=== PATIENT | female | born 1955 | race Caucasian/White ===

== ENCOUNTER 2017-10-27 07:52 | Emergency (ER) | payer OTHER, SELFPAY ==
[2017-10-27 08:00] VITALS: BP 148/89; PULSE 112; RESP 20; TEMP 36.7; O2SAT 99
--- NOTE | 2017-10-27 08:01 | ED.LOWEXIN ---
HPI - Extremity Injury (Lower) General Chief Complaint: Extremity Problem,Nontraumatic Stated Complaint: PAIN IN LEFT LEG Time Seen by Provider: 10/27/17 07:57 Source: patient Mode of arrival: ambulatory Limitations: no limitations History of Present Illness HPI Narrative: Patient is otherwise healthy 62-year-old female here for evaluation of approximately 1 month of left lower extremity soreness. She denies any specific trauma. She states that it has been hurting over the past month but worsening over the past week or so. It has gotten to the point to where her limping has become worse. Has been taking occasional anti-inflammatories but not on a regular basis. No prior knee injuries. Describes the pain as a vague soreness in her left calf muscle and specifically behind her left knee. No swelling of the lower extremity. No skin changes. Related Data Home Medications Medication Instructions Recorded Confirmed ibuprofen 200 mg PO #0 tab 11/27/15 10/25/17 Previous Rx's Medication Instructions Recorded venlafaxine 1 tab PO QDAY #90 tab 05/02/17 clotrimazole-betamethasone 1 1 applictn TOP BID #15 gram 10/25/17 %-0.05 % topical cream methocarbamol 500 mg tablet 1,000 mg PO QID #30 tab MDD 8000 10/25/17 mg/day omeprazole magnesium 20 mg 20 mg PO DAILY #30 tab 10/25/17 tablet,delayed release meloxicam [Mobic] 7.5 mg PO DAILY #30 tab 10/27/17 Allergies Allergy/AdvReac Type Severity Reaction Status Date / Time PET DANDER Allergy Unknown Uncoded 07/26/17 12:37 Review of Systems Constitutional Denies chills and Denies fever(s) Cardiovascular Denies chest pain and Denies dyspnea Respiratory Denies dyspnea Gastrointestinal Gastrointestinal: Denies abdominal pain Musculoskeletal Comments: Soreness to the left lower extremity Integumentary/Breasts Denies lesions and Denies rash Neurologic Comments: No changes in sensation left lower extremity Hematologic/Lymphatic Denies easy bleeding and Denies easy bruising PFSH Family History Brother Age: 60 Hypertension High cholesterol Brother Age: 58 Hypertension High cholesterol Father Cancer Grandfather Stroke Grandmother Diabetes mellitus TB (tuberculosis) Grandmother Stroke Social History Smoking Status: Never smoker alcohol intake: never Exam Initial Vital Signs Initial Vital Signs: Vital Signs Temperature 98.0 F 10/27/17 08:00 Pulse Rate 112 H 10/27/17 08:00 Respiratory Rate 20 10/27/17 08:00 Blood Pressure 148/89 H 10/27/17 08:00 Pulse Oximetry 99 10/27/17 08:00 Const General: cooperative, healthy appearing, comfortable, well developed, well groomed and No acute distress Orientation: alert, awake and oriented x3 HENMT Head: normal to inspection, normocephalic and atraumatic Resp Effort & Inspection: normal respiratory effort Cardio Pulses: dorsalis pedis present on the left Skin Lesions: no lesions Rashes: no rashes Neuro Other: Sensation intact to light touch left lower extremity Extrem General: normal to inspection and capillary refill normal Other: Left hip unremarkable Left ankle unremarkable Left foot unremarkable Patient with full range of motion of the left knee however asked to work to fully extend the knee. No tenderness to palpation over the quadriceps tendons. Patient able to do a straight leg raise without problems. No medial lateral joint line tenderness. ACL MCL PCL and LCL are all intact with functional testing. Patient does have a fullness to the lateral aspect of the posterior of her knee that seems to be the focal point of her pain. Psych Appearance: grossly normal and well kempt Course Orders Ordered: ED Orders 10/27/17 08:17 US periph venous low extrem lt Stat Vital Signs - 8 hr 10/27/17 08:00 Temperature 98.0 F Pulse Rate 112 H Respiratory Rate 20 Blood Pressure 148/89 H Pulse Oximetry 99 MDM - Extremity Injury (Lower) Imaging Data Venous US: Radiologist's impression: PROCEDURE: US PERIPH VENOUS LOW EXTREM LT INDICATIONS: PAIN TECHNIQUE: Real-time imaging, as well as color and pulse Doppler interrogation, were performed of the lower extremity deep veins from the inguinal ligament to the popliteal fossa. COMPARISON: None. FINDINGS: The deep veins are normally compressible, and free of intraluminal thrombus. Color and pulse Doppler demonstrate normal phasic intraluminal flow. There is normal augmentation response to distal compression maneuver. IMPRESSION: 1. No evidence of deep venous thrombosis in the left lower extremity. Dictated by: Alvarez Abdi M.D. on 10/27/2017 at 8:54 Approved by: Alvarez Abdi M.D. on 10/27/2017 at 8:55 [facility] Narrative Medical decision making narrative: Patient has had pain for 1 month. I have low suspicion for a fracture. Will hold on x-rays for now. Ultrasound was negative for DVT. broadband technician stated that there was no Mendez cyst however there is no mention of this on the ultrasound report. 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 She has no skin changes consistent with cellulitis. Physical exam is not consistent with compartment syndrome. Her history is not consistent with a major ligament disruption. She has no edema in her left lower extremity. Physical exam is not consistent with gout. Patient has only been taking occasional nonsteroidal anti-inflammatories. We discussed easy treatments such as elevation ice and anti-inflammatories. She was given crutches for her comfort. Patient states that she can get an appointment with her primary doctor in the next 2 weeks. Will send home with Zaira. She was instructed to make this appointment with her primary doctor and if her symptoms do not improve with the treatments that we discussed today to discuss the indications for an MRI with her primary doctor. She was given return precautions. She expressed understanding and agreement with plan. Discharge Plan Departure Patient Disposition: Home, Self-Care Clinical Impression: Leg pain, left Instructions: How to Use Crutches, How To Perform RICE (Rest, Ice, Compress, Elevate) Activity Restrictions/Additional Instructions: Recommend that you make the follow-up appointment with your primary care doctor for 2 weeks from now. Do the easy task likely discussed such as elevation and icing and compression in using the crutches as needed for your comfort. You can walk on your leg. Take the medication like we discussed. Return to the emergency department for any new or worsening symptoms. Prescriptions: New meloxicam [Mobic] 7.5 mg tablet 7.5 mg PO DAILY Qty: 30 RF: 0 No Action methocarbamol 500 mg tablet 1,000 mg PO QID MDD 8000 mg/day Qty: 30 RF: 0 clotrimazole-betamethasone [Lotrisone] 1-0.05 % cream 1 applictn TOP BID Qty: 15 RF: 2 omeprazole magnesium [Prilosec OTC] 20 mg tablet,delayed release (DR/EC) 20 mg PO DAILY Qty: 30 RF: 0 ibuprofen 200 MG tablet 200 mg PO Qty: 0 RF: 0 venlafaxine 75 MG tablet extended release 24hr 1 tab PO QDAY Qty: 90 RF: 3
--- NOTE | 2017-10-27 08:17 | DI.US.S_ITS ---
PROCEDURE: US PERIPH VENOUS LOW EXTREM LT INDICATIONS: PAIN TECHNIQUE: Real-time imaging, as well as color and pulse Doppler interrogation, were performed of the lower extremity deep veins from the inguinal ligament to the popliteal fossa. COMPARISON: None. FINDINGS: The deep veins are normally compressible, and free of intraluminal thrombus. Color and pulse Doppler demonstrate normal phasic intraluminal flow. There is normal augmentation response to distal compression maneuver. IMPRESSION: 1. No evidence of deep venous thrombosis in the left lower extremity. Dictated by: Alvarez Abdi M.D. on 10/27/2017 at 8:54 Approved by: Alvarez Abdi M.D. on 10/27/2017 at 8:55
[2017-10-27 09:40] VITALS: BP 136/90; PULSE 83; RESP 20; O2SAT 98
== END 2017-10-27 09:42 | disposition home or self-care (01) ==
PROVIDERS: Emergency Provider Emergency Medicine; PCP Family Medicine
DX: M79.605 Pain in left leg (principal)
CPT/HCPCS: 93971; 99282; 99284

== ENCOUNTER 2017-11-06 10:26 | Emergency (ER) | payer OTHER, SELFPAY ==
[2017-11-06 10:34] VITALS: BP 140/87; PULSE 98; RESP 18; TEMP 36.4; O2SAT 97; BMI 29.7
[2017-11-06 10:44] VITALS: PULSE 98
--- NOTE | 2017-11-06 11:34 | DI.RAD.S_ITS ---
PROCEDURE: XR TIBIA FIBULA RT 2V INDICATIONS: pain TECHNIQUE: 2 views of the tibia and fibula were acquired. COMPARISON: None. FINDINGS: Bones: No fractures or dislocations. No suspicious bony lesions. Soft tissues: No suspicious soft tissue calcifications or masses. IMPRESSION: No fracture. No osseous lesion. If symptoms and/or clinical suspicion for pathology persists, further assessment with repeat radiographs (7-10 days) or advanced imaging (e.g. CT, MRI or bone scan) may be helpful. Dictated by: Svetlana Jaffe MD, PhD on 11/06/2017 at 12:11 Approved by: Svetlana Jaffe MD, PhD on 11/06/2017 at 12:12
--- NOTE | 2017-11-06 11:34 | DI.RAD.S_ITS ---
PROCEDURE: XR KNEE LT 3V INDICATIONS: pain TECHNIQUE: 3 views of the knee were acquired. COMPARISON: None. FINDINGS: Bones: No fractures or dislocations. No suspicious bony lesions. Mild tricompartmental osteoarthritis. Soft tissues: No joint effusion. No suspicious soft tissue calcifications. IMPRESSION: No fracture. No osseous lesion. If symptoms and/or clinical suspicion for pathology persists, further assessment with repeat radiographs (7-10 days) or advanced imaging (e.g. CT, MRI or bone scan) may be helpful. Dictated by: Svetlana Jaffe MD, PhD on 11/06/2017 at 12:12 Approved by: Svetlana Jaffe MD, PhD on 11/06/2017 at 12:13
--- NOTE | 2017-11-06 12:29 | DI.RAD.S_ITS ---
PROCEDURE: XR HIP W PEL IF DONE LT 2V INDICATIONS: L knee pain w/ normal exam and imaging - referred pain? TECHNIQUE: AP pelvis with lateral view(s) of the left hip(s). COMPARISON: None. FINDINGS: Bones: No fractures or dislocations. Pelvic ring appears intact. No suspicious bony lesions. Soft tissues: The visualized bowel gas pattern is normal. No suspicious soft tissue calcifications. IMPRESSION: Normal pelvis and left hip Dictated by: Carrington Martines M.D. on 11/06/2017 at 12:44 Approved by: Carrington Martines M.D. on 11/06/2017 at 12:46
[2017-11-06 12:45] VITALS: BP 137/75; PULSE 82; RESP 82; O2SAT 97
--- NOTE | 2017-11-06 13:04 | ED_ITS ---
HPI - Extremity Injury (Lower) General Chief Complaint: Extremity Injury, Lower Stated Complaint: Left knee pain, non-weight bearing History of Present Illness HPI Narrative: HPI 62-year-old female with no known pertinent past medical history presents for evaluation of 5 weeks of gradual, atraumatic onset left knee/proximal calf discomfort that is interfering with ambulation. Patient reports a prior evaluation approximately one week ago with negative DVT ultrasound and absence of a Mendez's cyst on ultrasound. Patient denies change in symptoms over the last 5 weeks. Patient is requesting an MRI as she is having difficulty obtaining this through her PCP. Patient is without fevers, chills, or malaise. ROS with no recent constitutional symptoms. Exam Gen: Pleasant, nontoxic-appearing, resting comfortably. HEENT: NC, AT, PEERL, EOMI. Resp: Unlabored respirations with a normal work of breathing. Card: Extremities warm and well perfused. GI: Non-distended. : Deferred MSK: Left knee with full functional range of motion, no tenderness to palpation over the patella, fibular head, or joint line. No MCL or LCL tenderness to palpation, negative Zeny and posterior drawer test. No tenderness to palpation on the quadriceps or patellar tendon, both tendons intact on knee extension. No swelling, ecchymosis or effusion. Calf without visible or palpable trauma, muscle compartments soft and non-tender to palpation. Mild tenderness to palpation over the proximal calf. No tenderness palpation over the tibia or fibula. Gait - patient minimally able to bear weight on left leg, pain is localized to the distal posterior knee/proximal calf. Neuro: AO x 3, no facial asymmetry, vision and hearing WNL. Heme/Lymph: Deferred Skin: Normal color with no visible lesions (other than noted above). Psych: Mood and affect appropriate. Imaging: XR L knee: no fracture. No osseous lesions. XR L tib-fib: no fracture. No osseous lesion. XR L Hip and Pelvis: normal pelvis and left hip. MDM Previous chart, nursing note, and vitals reviewed. A: 62-year-old female with no known pertinent past medical history presents for evaluation of 5 weeks of gradual, atraumatic onset left knee/proximal calf discomfort that is interfering with ambulation. DDx & Evaluation: patient with left knee/proximal calf pain with otherwise unremarkable exam, this effectively excludes septic or crystalline arthropathy. CMS intact. No evidence of ligamentous or tendinous injury, no clear evidence of meniscal injury. No evidence of compartment syndrome, myositis considered but given the focal nature of pain as well as duration of symptoms this is considered highly unlikely. Prior DVT exam unremarkable, no indications for repeat imaging. X-rays of the knee and tibia or fibula were unremarkable, no evidence of acute fracture or pathologic lesions. Referred pain was considered, hip imaging was obtained this is without evidence of abnormality. Patient discharged with instructions to follow up with PCP for further evaluation. Impression: left knee/proximal calf pain. (please reference below for remainder of encounter information) Related Data Home Medications Medication Instructions Recorded Confirmed ibuprofen 200 mg PO PRN PRN #0 tab 11/27/15 11/06/17 Previous Rx's Medication Instructions Recorded venlafaxine 1 tab PO QDAY #90 tab 05/02/17 clotrimazole-betamethasone 1 1 applictn TOP BID #15 gram 10/25/17 %-0.05 % topical cream omeprazole magnesium 20 mg 20 mg PO DAILY #30 tab 10/25/17 tablet,delayed release meloxicam [Mobic] 7.5 mg PO DAILY #30 tab 10/27/17 cyclobenzaprine 5 mg tablet 5 mg PO BEDTIME #30 tab 11/02/17 Allergies Allergy/AdvReac Type Severity Reaction Status Date / Time PET DANDER Allergy Unknown Uncoded 07/26/17 12:37 [facility] Social History Smoking Status: Never smoker alcohol intake: never Exam Initial Vital Signs Initial Vital Signs: Vital Signs Temperature 97.6 F 11/06/17 10:34 Pulse Rate 98 H 11/06/17 10:34 Respiratory Rate 18 11/06/17 10:34 Blood Pressure 140/87 H 11/06/17 10:34 Pulse Oximetry 97 11/06/17 10:34 Course Orders Ordered: ED Orders 11/06/17 11:34 XR knee LT 3V Stat XR tibia fibula LT 2V Stat 11/06/17 12:29 XR hip w pel if done LT 2V Stat Vital Signs - 8 hr 11/06/17 10:34 11/06/17 10:44 11/06/17 12:45 Temperature 97.6 F Pulse Rate 98 H 82 Pulse Rate [Left Dorsalis Pedis] 98 H Respiratory Rate 18 82 H Blood Pressure 140/87 H Blood Pressure [Left Arm] 137/75 H Pulse Oximetry 97 97 Discharge Plan Departure Prescriptions: No Action clotrimazole-betamethasone [Lotrisone] 1-0.05 % cream 1 applictn TOP BID Qty: 15 RF: 2 omeprazole magnesium [Prilosec OTC] 20 mg tablet,delayed release (DR/EC) 20 mg PO DAILY Qty: 30 RF: 0 ibuprofen 200 MG tablet 200 mg PO PRN PRN (Reason: Pain, Mild) Qty: 0 RF: 0 venlafaxine 75 MG tablet extended release 24hr 1 tab PO QDAY Qty: 90 RF: 3 cyclobenzaprine 5 mg tablet 5 mg PO BEDTIME Qty: 30 RF: 0 meloxicam [Mobic] 7.5 mg tablet 7.5 mg PO DAILY Qty: 30 RF: 0
== END 2017-11-06 13:35 | disposition home or self-care (01) ==
PROVIDERS: Emergency Provider Emergency Medicine; PCP Family Medicine
DX: M25.562 Pain in left knee (principal)
CPT/HCPCS: 73502; 73562; 73590; 99281; 99283

== ENCOUNTER → 2018-07-28 11:22 | Outpatient (CLI) | payer OTHER, SELFPAY ==
--- NOTE | 2018-07-28 11:24 | DI.MG.S_ITS ---
BILATERAL DIGITAL SCREENING MAMMOGRAM 3D/2D WITH CAD: 07/28/2018 CLINICAL: Routine screening. Family history of breast cancer. Comparison is made to exams dated: 10/12/2016 mammogram - [facility], 10/15/2008 mammogram, and 03/05/2008 mammogram - [facility]. The tissue of both breasts is extremely dense, which lowers the sensitivity of mammography. Current study was also evaluated with a Computer Aided Detection (CAD) system. There are benign post operative findings in both breasts. There also are benign calcifications in both breasts. Additionally, there is a benign biopsy clip in the left breast. No significant masses, calcifications, or other findings are seen in either breast. There has been no significant interval change. IMPRESSION: There is no mammographic evidence of malignancy. A 1 year screening mammogram is recommended. This exam was interpreted at Station ID: [id number]. NOTE: For mammograms, a report in lay terms will be sent to the patient. Approximately 15% of breast malignancies will not be visualized mammographically. In the management of a palpable breast mass, a negative mammogram must not discourage biopsy of a clinically suspicious lesion. Electronically Signed By: Giuseppe moseley/leonardo:07/30/2018 09:00:51 letter sent: Normal Exam ACR BI-RADS Category 2: Benign Finding(s) 3342F
== END ==
PROVIDERS: PCP Family Medicine; Visit Provider Family Medicine
DX: Z12.31 Encounter for screening mammogram for malignant neoplasm of breast (principal); Z80.3 Family history of malignant neoplasm of breast
CPT/HCPCS: 77063; 77067

== ENCOUNTER → 2020-03-20 11:09 | Outpatient (CLI) | payer MEDICARE, OTHER, SELFPAY ==
[2020-03-20 12:58] LABS: Add Manual Diff / Slide Review NO; Basophils Absolute Auto 0 /uL (0-100); Basophils Percent Auto 0.6 % (0-2); Eosinophils Absolute Auto 200 /uL (0-450); Eosinophils Percent Auto 5.2 % (2-4); Hematocrit 40.1 % (36-46); Hemoglobin 13.1 g/dL (12.0-16.0); Lymphocytes Absolute Auto 1000 /uL (1100-4500); Lymphocytes Percent Auto 22.5 % (25-40); Mean Corpuscular HGB Conc 32.8 % (30-36); Mean Corpuscular Hemoglobin 28.7 PG (26-34); Mean Corpuscular Volume 87.5 fL (80-100); Monocytes Absolute Auto 400 /uL (0-900); Monocytes Percent Auto 9.5 % (3-14); Neutrophils Absolute Auto 2700 /uL (1500-7000); Neutrophils Percent Auto 62.2 % (50-75); Platelet Count 207 X10^3/uL (150-400); Red Blood Cell Count 4.59 X10^6/uL (4.0-5.2); Red Cell Distribution Width 13.9 % (11.6-14.8); White Blood Cell Count 4.4 X10^3/uL (4.5-11.0)
[2020-03-20 13:54] LABS: Alanine Aminotransferase 17 IU/L (<35); Albumin 4.1 g/dL (3.5-5.0); Albumin Globulin Ratio 1.3 (1.0-2.8); Alkaline Phosphatase 92 U/L (38-126); Aspartate Aminotransferase 30 IU/L (14-36); BUN Creatinine Ratio 19.8 (6-22); Bilirubin Total 0.7 mg/dL (0.2-1.3); Blood Urea Nitrogen 17 mg/dL (7-17); Calcium 9.1 mg/dL (8.4-10.2); Carbon Dioxide 29 mmol/L (22-32); Chloride 104 mmol/L (98-107); Cholesterol 217 mg/dL (140-199); Estimated Glomerular Filt Rate > 60.0 mL/min (>60); Globulin 3.1 g/dL (1.7-4.1); Glucose 93 mg/dL (80-110); HDL Cholesterol 65 mg/dL (40-60); HEMOLYSIS < 15 (0-50); LDL Cholesterol Calculated 136 mg/dL (<100); Potassium 4.2 mmol/L (3.4-5.1); Sodium 137 mmol/L (137-145); Total Protein 7.2 g/dL (6.3-8.2); Triglycerides 81 mg/dL (35-150)
[2020-03-20 14:35] LABS: Vitamin B12 277 pg/mL (239-931)
== END ==
PROVIDERS: PCP Family Medicine; Referring Provider Family Medicine; Visit Provider Family Medicine
DX: F41.8 Other specified anxiety disorders (principal); R53.83 Other fatigue; Z79.899 Other long term (current) drug therapy; Z13.0 Encounter for screening for diseases of the blood and blood-forming organs and certain disorders involving the immune mechanism; Z13.1 Encounter for screening for diabetes mellitus; Z13.220 Encounter for screening for lipoid disorders; Z13.29 Encounter for screening for other suspected endocrine disorder
CPT/HCPCS: 36415; 80053; 80061; 82607; 85025

== ENCOUNTER → 2020-04-11 08:58 | Outpatient (CLI) | payer MEDICARE, OTHER, SELFPAY ==
--- NOTE | 2020-04-11 09:01 | DI.MG.S_ITS ---
BILATERAL DIGITAL SCREENING MAMMOGRAM 3D/2D WITH CAD: 04/11/2020 CLINICAL: Routine screening. Family history of breast cancer. Comparison is made to exams dated: 07/28/2018 mammogram and 10/12/2016 mammogram - [facility]. The tissue of both breasts is extremely dense, which lowers the sensitivity of mammography. Current study was also evaluated with a Computer Aided Detection (CAD) system. There are benign calcifications in both breasts. There also are benign post operative findings in the right breast. Additionally, there are benign post operative findings and biopsy clip in the left breast. No significant masses, calcifications, or other findings are seen in either breast. There has been no significant interval change. IMPRESSION: BENIGN There is no mammographic evidence of malignancy. A 1 year screening mammogram is recommended. This exam was interpreted at Station ID: [id number]. NOTE: For mammograms, a report in lay terms will be sent to the patient. Approximately 15% of breast malignancies will not be visualized mammographically. In the management of a palpable breast mass, a negative mammogram must not discourage biopsy of a clinically suspicious lesion. Electronically Signed By: Baldemar del valle/leonardo:04/13/2020 10:37:08 letter sent: Normal Exam ACR BI-RADS Category 2: Benign Finding(s) 3342F
== END ==
PROVIDERS: PCP Family Medicine; Referring Provider Family Medicine; Visit Provider Family Medicine
DX: Z12.31 Encounter for screening mammogram for malignant neoplasm of breast (principal); Z80.3 Family history of malignant neoplasm of breast
CPT/HCPCS: 77063; 77067

== ENCOUNTER 2020-04-27 12:53 | Observation (INO) | payer MEDICARE, SELFPAY ==
[2020-04-27] VITALS (10 sets, daily range): BP systolic 125–152; BP diastolic 68–87; PULSE 70–82; RESP 16–23; TEMP 36.4–36.7; O2SAT 95–99; BMI 29.7
--- NOTE | 2020-04-27 13:02 | DI.RAD.S_ITS ---
PROCEDURE: XR CHEST 1V INDICATIONS: chest pain TECHNIQUE: One view of the chest was acquired. COMPARISON: None. FINDINGS: Surgical changes and devices: None. Lungs and pleura: Lungs are clear. No pleural effusions or pneumothorax. Mediastinum: Mediastinal contours appear normal. Heart size is normal. Bones and chest wall: No suspicious bony lesions. Overlying soft tissues appear unremarkable. IMPRESSION: Normal portable chest for age. Dictated by: Roly Vitale M.D. on 04/27/2020 at 12:23 Approved by: Roly Vitale M.D. on 04/27/2020 at 12:24
--- NOTE | 2020-04-27 13:12 | ED.CHESTPAIN ---
HPI - Chest Pain General Chief Complaint: Chest Pain Stated Complaint: Tightening/Pain in Chest, Sweating, Light Headed Time Seen by Provider: 04/27/20 13:01 Source: patient Mode of arrival: Ambulatory Limitations: no limitations History of Present Illness HPI narrative: Patient is a 65-year-old female who presents with chest tightness. She states she has had at least 3 episodes in last 2 weeks all occurring at rest lasting 10-20 minutes. She says it starts underneath her left breast radiates all around she experiences tightening. She gets sweaty nauseous and feels like she is going to pass out. She denies any shortness of breath. He is currently chest pain-free. She has no known coronary artery disease or other medical problems. No recent travel, she denies any fever chills or cough. Her now states that the patient is having these episodes she is extremely lightheaded and she is talking gibberish. She says she does not understand what she is saying. She has not noted any facial drooping or weakness. Patient is not able to ambulate during these times because of the severe lightheadedness. MD complaint: chest pain Onset (ago): week(s) Duration: now resolved Pain location: left chest Severity: moderate Relieving factors: nothing Exacerbating factors: nothing Related Data Previous Rx's Medication Instructions Recorded omeprazole 20 mg capsule,delayed 20 mg PO DAILY #90 cap 05/30/18 release venlafaxine 75 mg capsule,extended 75 mg PO DAILY #90 cap 04/03/20 release 24 hr Allergies Allergy/AdvReac Type Severity Reaction Status Date / Time PET DANDER Allergy Unknown Uncoded 02/29/20 11:44 Review of Systems Review of Systems Narrative: GENERAL: Denies chills, fatigue, malaise, fever, sweats, travel HEENT: Denies sinus pain, ear pain, sore throat, difficulty swallowing, neck pain RESPIRATORY: Denies dyspnea, cough, wheezing, hemoptysis, sputum. CARDIOVASCULAR: See HPI GASTROINTESTINAL: Denies nausea, vomiting, abdominal pain, diarrhea, constipation, melena. : Denies dysuria, frequency, incontinence, hematuria, urinary retention, flank pain. MUSCULOSKELETAL: Denies weakness, joint pain, or bony pain SKIN: No rash, no erythema, no pruritus NEUROLOGIC: Denies weakness, dizziness, headache, numbness, change in speech, confusion PSYCHIATRIC: No concerning psychosocial issues. 12 point review of systems is negative except for those stated above and HPI Patient History Medical History Allergic rhinitis (Unknown) Anxiety (2015) Asthma (Unknown) Fractures (1968) Mumps (1965) Mumps (~1964) Osteoarthritis (2005) Restless leg syndrome (Unknown) Skin cancer (03/2017) Surgical History Anesthesia Hx of surgical procedure (03/2017) Family History Brother Age: 63 Hypertension High cholesterol Cancer Brother Age: 61 Hypertension High cholesterol Father Cancer Grandfather Stroke Grandmother Diabetes mellitus TB (tuberculosis) Grandmother Stroke Mother Cancer Social History marital status: number of children: 3 household members: spouse lives independently: Yes caregiver/support person: No housing: house occupational status: employed Smoking Status: Never smoker second hand exposure: No alcohol intake: never substance use type: does not use Smoking Status: Never smoker alcohol intake frequency: holidays/special occasions only Substance Use Type: does not use Exam Initial Vital Signs Initial Vital Signs: Vital Signs Pulse Rate 72 04/27/20 13:03 Respiratory Rate 18 04/27/20 13:03 Blood Pressure 140/71 04/27/20 13:03 Pulse Oximetry 97 04/27/20 13:03 GENERAL: Well-appearing, well-nourished and in no acute distress. HEENT: Head atraumatic,EOMI, pupils reactive, face symmetric, moist mucous membranes CARDIOVASCULAR: Regular rate and rhythm without murmurs, rubs or gallops. RESPIRATORY: Breath sounds equal bilaterally, no wheezes rales or rhonchi. ABDOMEN: Soft, nontender. Normoactive bowel sounds all 4 quadrants. No guarding or rebound. EXTREMITIES: Normal range of motion, no clubbing or edema. Neurovascularly intact NEUROLOGICAL: Alert and oriented x4.Normal gait and speech. Cranial nerves II through XII grossly intact. SKIN: Warm, dry, no laceration, no petechiae, no rashes or lesions. Scores NIH Stroke Scale Level of Conciousness: Alert, keenly responsive Ask month/age: Answers both questions correctly. Open/close eyes, close hand: Performs both tasks correctly Best gaze horizontal: Normal Visual navarro: No visual loss Facial palsy: Normal symetrical movement Left arm drift: No drift for full 10 sec Right arm drift: No drift for full 10 sec Left leg drift: No drift for full 5 sec Right leg drift: No drift for full 5 sec Limb ataxia: Absent Sensory on face/arms/legs: Normal, no sensory loss Best language: No aphasia, normal Dysarthria: Normal Extinction or inattention: No abnormality Total NIH Stroke scale score: 0 Course Orders Ordered: ED Orders 04/27/20 13:02 XR chest 1V Stat EKG-12 Lead Stat 04/27/20 13:15 BNP [NT-proBNP (BNP-Adult 18+)] Stat Complete Blood Count AUTO DIFF Stat Comprehensive Metabolic Panel Stat Lipase Stat Magnesium Stat Partial Thromboplastin Time Stat Prothrombin Time INR Stat Troponin & CK Cardiac Panel Stat 04/27/20 14:04 CT head/brain wo con Stat 04/27/20 14:23 COVID19 Stat Acetaminophen (Acetaminophen 325 Mg Tablet) 650 mg PO Q6HR PRN PRN Reason: Fever/Mild Pain (1-3) Morphine Sulfate (Morphine 2 Mg/Ml Inj) 2 mg IV Q5MIN PRN PRN Reason: Chest Pain Naloxone HCl (Naloxone 0.4 Mg/Ml Vial) 0.2 mg IV Q2MIN PRN PRN Reason: Opiate Reversal Nitroglycerin (Nitroglycerin 0.4 Mg Sl Tab) 0.4 mg SL [id number] PRN PRN Reason: Chest Pain Pantoprazole Sodium (Pantoprazole 20 Mg Tablet) 20 mg PO 0600 [facility] Venlafaxine HCl (Venlafaxine Er 75 Mg Cap) 75 mg PO DAILY [facility] Discontinued Medications Aspirin (Aspirin Ec 81 Mg Tablet) 81 mg PO NOW ONE Stop: 04/27/20 17:10 Last Admin: 04/27/20 17:45 Dose: 81 mg Documented by: STONEY Vital Signs Vital signs: Vital Signs - 8 hr 04/27/20 13:03 04/27/20 13:06 04/27/20 14:00 Temperature 97.7 F Pulse Rate 72 74 Respiratory Rate 18 Blood Pressure 140/71 Pulse Oximetry 97 98 04/27/20 14:30 04/27/20 14:40 Temperature Pulse Rate 71 72 Respiratory Rate 23 23 Blood Pressure 135/87 Pulse Oximetry 98 99 MDM - Chest Pain Lab Data Attestation: I reviewed the patient's lab results. Result diagrams: 04/27/20 13:15 04/27/20 13:15 Labs: Lab Results 04/27/20 04/27/20 04/27/20 Range/Units 13:15 13:15 13:15 WBC 5.9 (4.5-11.0) X10^3/uL RBC 4.36 (4.0-5.2) X10^6/uL Hgb 12.6 (12.0-16.0) g/dL Hct 37.7 (36-46) % MCV 86.4 (80-100) fL MCH 28.9 (26-34) PG MCHC 33.5 (30-36) % RDW 13.9 (11.6-14.8) % Plt Count 213 (150-400) X10^3/uL Neut % (Auto) 60.6 (50-75) % Lymph % (Auto) 20.3 L (25-40) % [place] % (Auto) 11.4 (3-14) % Eos % (Auto) 6.9 H (2-4) % Baso % (Auto) 0.8 (0-2) % Neut # (Auto) 3600 (1269-4618) /uL Lymph # (Auto) 1200 (6427-4758) /uL [place] # (Auto) 700 (0-900) /uL Eos # (Auto) 400 (0-450) /uL Baso # (Auto) 0 (0-100) /uL PT 12.1 (10.1-12.7) SECONDS INR 1.1 (0.9-1.3) APTT 31 (26.4-36.2) SECONDS Sodium 135 L (137-145) mmol/L Potassium 4.0 (3.4-5.1) mmol/L Chloride 101 (98-107) mmol/L Carbon Dioxide 26 (22-32) mmol/L BUN 22 H (7-17) mg/dL Creatinine 0.84 (0.52-1.04) mg/dL Estimated GFR > 60.0 (>60) mL/min BUN/Creatinine Ratio 26.2 H (6-22) Glucose 124 H (80-110) mg/dL Calcium 9.3 (8.4-10.2) mg/dL Magnesium 2.0 (1.6-2.3) mg/dL Total Bilirubin 0.3 (0.2-1.3) mg/dL AST 55 H (14-36) IU/L ALT 30 (<35) IU/L Alkaline Phosphatase 112 (38-126) U/L Total Creatine Kinase 75 (30-135) U/L CK-MB (CK-2) TNP CK-MB (CK-2) Rel Index TNP Troponin I < 0.012 (0.01-0.034) ng/mL NT-Pro-B Natriuret Pep 50 (<125) pg/mL Total Protein 7.0 (6.3-8.2) g/dL Albumin 4.1 (3.5-5.0) g/dL Globulin 2.9 (1.7-4.1) g/dL Albumin/Globulin Ratio 1.4 (1.0-2.8) Lipase 91 (23-300) U/L SARS-CoV-2 (PCR) (Negative) 04/27/20 Range/Units 14:23 WBC (4.5-11.0) X10^3/uL RBC (4.0-5.2) X10^6/uL Hgb (12.0-16.0) g/dL Hct (36-46) % MCV (80-100) fL MCH (26-34) PG MCHC (30-36) % RDW (11.6-14.8) % Plt Count (150-400) X10^3/uL Neut % (Auto) (50-75) % Lymph % (Auto) (25-40) % [place] % (Auto) (3-14) % Eos % (Auto) (2-4) % Baso % (Auto) (0-2) % Neut # (Auto) (2361-4752) /uL Lymph # (Auto) (7181-6252) /uL [place] # (Auto) (0-900) /uL Eos # (Auto) (0-450) /uL Baso # (Auto) (0-100) /uL PT (10.1-12.7) SECONDS INR (0.9-1.3) APTT (26.4-36.2) SECONDS Sodium (137-145) mmol/L Potassium (3.4-5.1) mmol/L Chloride (98-107) mmol/L Carbon Dioxide (22-32) mmol/L BUN (7-17) mg/dL Creatinine (0.52-1.04) mg/dL Estimated GFR (>60) mL/min BUN/Creatinine Ratio (6-22) Glucose (80-110) mg/dL Calcium (8.4-10.2) mg/dL Magnesium (1.6-2.3) mg/dL Total Bilirubin (0.2-1.3) mg/dL AST (14-36) IU/L ALT (<35) IU/L Alkaline Phosphatase (38-126) U/L Total Creatine Kinase (30-135) U/L CK-MB (CK-2) CK-MB (CK-2) Rel Index Troponin I (0.01-0.034) ng/mL NT-Pro-B Natriuret Pep (<125) pg/mL Total Protein (6.3-8.2) g/dL Albumin (3.5-5.0) g/dL Globulin (1.7-4.1) g/dL Albumin/Globulin Ratio (1.0-2.8) Lipase (23-300) U/L SARS-CoV-2 (PCR) Negative (Negative) Imaging Data Chest x-ray: Radiologist's Impression: PROCEDURE: XR CHEST 1V INDICATIONS: chest pain TECHNIQUE: One view of the chest was acquired. COMPARISON: None. FINDINGS: Surgical changes and devices: None. Lungs and pleura: Lungs are clear. No pleural effusions or pneumothorax. Mediastinum: Mediastinal contours appear normal. Heart size is normal. Bones and chest wall: No suspicious bony lesions. Overlying soft tissues appear unremarkable. IMPRESSION: Normal portable chest for age. Dictated by: Roly Vitale M.D. on 04/27/2020 at 12:23 CT scan - head: Radiologist's Impression: PROCEDURE: CT HEAD/BRAIN WO CON INDICATIONS: speech difficulty now resolved TECHNIQUE: Noncontrast 4.5 mm thick angled axial sections acquired from the foramen magnum to the vertex, with coronal and sagittal reformats. For radiation dose reduction, the following was used: automated exposure control, adjustment of mA and/or kV according to patient size. COMPARISON: None. FINDINGS: Image quality: Excellent. CSF spaces: Basal cisterns are patent. No extra-axial fluid collections. The ventricles are symmetric in size and shape. Brain: No intracranial bleeds or masses. There is cerebral volume loss for age, with resultant ventricular and sulcal prominence. There are periventricular and deep white matter chronic small vessel ischemic changes. There is intracranial internal carotid artery atherosclerosis. Skull and face: Calvarium and visualized facial bones appear intact, without suspicious lesions. Sinuses: Visualized sinuses and mastoids are clear. IMPRESSION: No acute intracranial disease process. Dictated by: Svetlana Jaffe MD, PhD on 04/27/2020 at 14:27 ECG Data Attestation: I personally reviewed and interpreted this ECG as follows: Prior ECG tracings: not available for review Interpretation: Normal sinus rhythm rate 63 p.r. interval 148 QRS 78 QTC [address] changes Q-wave noted in lead 3 only MDM Narrative Medical decision making narrative: Patient has a variety of symptoms concerning for possible TIA versus atypical chest pain. They certainly have been escalating and progressing over the last 2 weeks. Currently she is chest pain-free and has no focal deficits. I spoke with Dr. Hoyt who agrees with observation Discharge Plan Departure Patient Disposition: Admitted as Observation Clinical Impression: Chest pain, Brain TIA Admit Date/Time: 04/27/20 14:44 Admit Provider: Patricia Hoyt
[2020-04-27 13:23] LABS: Add Manual Diff / Slide Review NO; Basophils Absolute Auto 0 /uL (0-100); Basophils Percent Auto 0.8 % (0-2); Eosinophils Absolute Auto 400 /uL (0-450); Eosinophils Percent Auto 6.9 % (2-4); Hematocrit 37.7 % (36-46); Hemoglobin 12.6 g/dL (12.0-16.0); Lymphocytes Absolute Auto 1200 /uL (1100-4500); Lymphocytes Percent Auto 20.3 % (25-40); Mean Corpuscular HGB Conc 33.5 % (30-36); Mean Corpuscular Hemoglobin 28.9 PG (26-34); Mean Corpuscular Volume 86.4 fL (80-100); Monocytes Absolute Auto 700 /uL (0-900); Monocytes Percent Auto 11.4 % (3-14); Neutrophils Absolute Auto 3600 /uL (1500-7000); Neutrophils Percent Auto 60.6 % (50-75); Platelet Count 213 X10^3/uL (150-400); Red Blood Cell Count 4.36 X10^6/uL (4.0-5.2); Red Cell Distribution Width 13.9 % (11.6-14.8); White Blood Cell Count 5.9 X10^3/uL (4.5-11.0)
[2020-04-27 13:35] LABS: INR 1.1 (0.9-1.3); Prothrombin Time 12.1 SECONDS (10.1-12.7)
[2020-04-27 13:38] LABS: PTT Partial Thromboplastin Tim 31 SECONDS (26.4-36.2)
[2020-04-27 13:39] LABS: Alanine Aminotransferase 30 IU/L (<35); Albumin 4.1 g/dL (3.5-5.0); Albumin Globulin Ratio 1.4 (1.0-2.8); Alkaline Phosphatase 112 U/L (38-126); Aspartate Aminotransferase 55 IU/L (14-36); BUN Creatinine Ratio 26.2 (6-22); Bilirubin Total 0.3 mg/dL (0.2-1.3); Blood Urea Nitrogen 22 mg/dL (7-17); Calcium 9.3 mg/dL (8.4-10.2); Carbon Dioxide 26 mmol/L (22-32); Chloride 101 mmol/L (98-107); Creatine Kinase 75 U/L (30-135); Estimated Glomerular Filt Rate > 60.0 mL/min (>60); Globulin 2.9 g/dL (1.7-4.1); Glucose 124 mg/dL (80-110); HEMOLYSIS < 15 (0-50); Lipase 91 U/L (23-300); Sodium 135 mmol/L (137-145)
[2020-04-27 13:51] LABS: NT-proBNP (BNP-Adult 18+) 50 pg/mL (<125); Troponin I < 0.012 ng/mL (0.01-0.034)
--- NOTE | 2020-04-27 14:04 | DI.CT.S_ITS ---
PROCEDURE: CT HEAD/BRAIN WO CON INDICATIONS: speech difficulty now resolved TECHNIQUE: Noncontrast 4.5 mm thick angled axial sections acquired from the foramen magnum to the vertex, with coronal and sagittal reformats. For radiation dose reduction, the following was used: automated exposure control, adjustment of mA and/or kV according to patient size. COMPARISON: None. FINDINGS: Image quality: Excellent. CSF spaces: Basal cisterns are patent. No extra-axial fluid collections. The ventricles are symmetric in size and shape. Brain: No intracranial bleeds or masses. There is cerebral volume loss for age, with resultant ventricular and sulcal prominence. There are periventricular and deep white matter chronic small vessel ischemic changes. There is intracranial internal carotid artery atherosclerosis. Skull and face: Calvarium and visualized facial bones appear intact, without suspicious lesions. Sinuses: Visualized sinuses and mastoids are clear. IMPRESSION: No acute intracranial disease process. Dictated by: Svetlana Jaffe MD, PhD on 04/27/2020 at 14:27 Approved by: Svetlana Jaffe MD, PhD on 04/27/2020 at 14:30
[2020-04-27 15:04] LABS: COVID19 -Nasal RAPID Negative (Negative)
--- NOTE | 2020-04-27 15:29 | DI.NM.S_ITS ---
PROCEDURE: NM EXERCISE TREADMILL NON NUC COMPARISON: None. INDICATIONS: atypical chest pain FINDINGS: The patient exercised for 6 minutes reaching 7.0 METS and 108% of maximum predicted heart rate. Appropriate BP response to exercise. No angina during the study. No ECG evidence of ischemia. IMPRESSION: Low risk, normal treadmill ECG only stress test. Fair exercise tolerance and adequate stress test. No angina. No ECG evidence of ischemia. Dictated by: Enrrique Ramon MD on 04/28/2020 at 13:58 Approved by: Enrrique Ramon MD on 04/28/2020 at 13:59
--- NOTE | 2020-04-27 16:52 | PM.HP.1 ---
History of Present Illness History of Present Illness Date Patient Seen: 04/27/20 Time Patient Seen: 16:15 Chief complaint: Tightening/Pain in Chest, Sweating, Light Headed Narrative: Pt is a 65yo woman with anxiety and depression, and GERD who presented with recurrent chest pain. The pt reports having 3 isolated occurrences of chest pain in the past 2 weeks. The first occurred prior to using the restroom. She reports it felt like a deep substernal pressure with spider legs expanding out across her chest. She had associated severe nausea, sweating, and lightheadedness, and turned very pale. She ended up laying down on the bathroom floor. It resolved after approximately 10 minutes. There were no residual symptoms after resolution. She denies any associated palpitations or SOB. The pain did not radiate to her back, arms, or jaw. The pain recurred on 04/24 when she was sitting at home during the day. Her noted that she looked very pale. She had the exact same symptoms, this time lasting around 15 minutes. Her noted that her speech was slightly slurred at the time as well. The final occurrence was earlier today, again lasting around 10 minutes with the same symptoms, however this time without any speech issues. The pt denies any recent exercise intolerance - no worsening SOB with exercise, chest pain, easy muscle fatigue. She does note that she has gained weight recently due to COVID eating. She does have a hx of GERD, and recently took Omeprazole BID instead of once/day for a few days due to increasing symptoms. The pt notes these symptoms usually occur first thing in the morning or in the evening, however, and the chest pain has only happened in the middle of the day. She denies any other recent abdominal symptoms, change in bowel movements. She does not check her BP at home, but has no hx of HTN or elevated blood pressures. Patient History Medical History Allergic rhinitis (Unknown) Anxiety (2014) Asthma (Unknown) Fractures (1967) Mumps (1965) Mumps (~1964) Osteoarthritis (2004) Restless leg syndrome (Unknown) Skin cancer (03/2017) Surgical History Anesthesia Hx of surgical procedure (03/2017) Family & Social History Family History Brother Age: 63 Hypertension High cholesterol Cancer Brother Age: 61 Hypertension High cholesterol Father Cancer Grandfather Stroke Grandmother Diabetes mellitus TB (tuberculosis) Grandmother Stroke Mother Cancer Social History: household members spouse Prior Living Arrangements House lives independently Yes caregiver/support person No Safety & Behavioral: Feels Safe in Current Yes Environment Been Physically Hurt or No Threatened By a Person Suicidal Ideation Description None Suicide Plan Description No Plan Tobacco & Substance use: Smoking Status Never smoker alcohol intake never alcohol intake frequency holiday/special occasion Substance Use Type does not use Meds Home Medications and Allergies Home Medications Medication Instructions Recorded Confirmed Type omeprazole 20 mg capsule,delayed 20 mg PO DAILY #90 cap 05/30/18 04/27/20 Rx release venlafaxine 75 mg capsule,extended 75 mg PO DAILY #90 cap 04/03/20 04/27/20 Rx release 24 hr Allergies Allergy/AdvReac Type Severity Reaction Status Date / Time PET DANDER Allergy Unknown Uncoded 02/29/20 11:44 Review of Systems Constitutional Constitutional: Denies chills, Denies difficulty sleeping, Denies fatigue, Denies fever(s) and Reports weight gain ENT Ears, Nose, Mouth, and Throat: No dizziness, No otalgia, No nasal congestion and No sinus pain Cardiovascular Cardiovascular: Reports chest pain, Reports diaphoresis, Denies rapid heart rate, Denies edema, Denies irregular heart rhythm, Reports lightheadedness, Denies radiating jaw, neck or arm pain and Denies dyspnea Respiratory Respiratory: Denies cough, Denies dyspnea and Denies wheezing Gastrointestinal Gastrointestinal: Denies abdominal pain, Denies melena, Denies bloating, Denies hematochezia, Denies change in bowel habits, Reports nausea and Denies vomiting Neurologic Neurologic: Denies dizziness Endocrine Endocrine: Denies fatigue Allergic/Immunologic Allergic/Immunologic: Denies wheezing Exam Vital Signs (past 8 hours): - 04/27/20 13:03 04/27/20 13:06 04/27/20 14:00 Temperature 97.7 F Pulse Rate 72 74 Respiratory Rate 18 Blood Pressure 140/71 Pulse Oximetry 97 98 04/27/20 14:30 04/27/20 14:40 04/27/20 15:00 Temperature Pulse Rate 71 72 72 Respiratory Rate 23 23 21 Blood Pressure 135/87 143/84 H Pulse Oximetry 98 99 97 04/27/20 15:30 04/27/20 16:00 Temperature 97.7 F Pulse Rate 74 70 Respiratory Rate 19 16 Blood Pressure 137/83 152/86 H Pulse Oximetry 97 97 Oxygen Delivery Method Room Air Narrative Exam Narrative: GEN - alert, cooperative and no distress HEENT - normocephalic and atraumatic, moist mucus membranes NECK - FROM, no adenopathy, no JVD HEART - RRR, S1, S2 normal, no S3 or S4, no murmurs LUNGS - symmetric chest rise, no accessory muscles, clear to auscultation bilaterally ABD - flat, nondistended, normal bowel sounds, soft, nontender and no hepatomegaly, splenomegaly or masses EXT - no cyanosis, clubbing or edema SKIN - no rashes or suspicious lesions NEURO - no gross deficits Objective Imaging CT scan - head: Radiologist's impression: PROCEDURE: CT HEAD/BRAIN WO CON INDICATIONS: speech difficulty now resolved TECHNIQUE: Noncontrast 4.5 mm thick angled axial sections acquired from the foramen magnum to the vertex, with coronal and sagittal reformats. For radiation dose reduction, the following was used: automated exposure control, adjustment of mA and/or kV according to patient size. COMPARISON: None. FINDINGS: Image quality: Excellent. CSF spaces: Basal cisterns are patent. No extra-axial fluid collections. The ventricles are symmetric in size and shape. Brain: No intracranial bleeds or masses. There is cerebral volume loss for age, with resultant ventricular and sulcal prominence. There are periventricular and deep white matter chronic small vessel ischemic changes. There is intracranial internal carotid artery atherosclerosis. Skull and face: Calvarium and visualized facial bones appear intact, without suspicious lesions. Sinuses: Visualized sinuses and mastoids are clear. IMPRESSION: No acute intracranial disease process. Dictated by: Svetlana Jaffe MD, PhD on 04/27/2020 at 14:27 Chest x-ray: Radiologist's impression: PROCEDURE: XR CHEST 1V INDICATIONS: chest pain TECHNIQUE: One view of the chest was acquired. COMPARISON: None. FINDINGS: Surgical changes and devices: None. Lungs and pleura: Lungs are clear. No pleural effusions or pneumothorax. Mediastinum: Mediastinal contours appear normal. Heart size is normal. Bones and chest wall: No suspicious bony lesions. Overlying soft tissues appear unremarkable. IMPRESSION: Normal portable chest for age. Dictated by: Roly Vitale M.D. on 04/27/2020 at 12:23 Labs Result Diagrams: 04/27/20 13:15 04/27/20 13:15 Labs: Laboratory Results - last 24 hr 04/27/20 04/27/20 04/27/20 13:15 13:15 13:15 WBC 5.9 RBC 4.36 Hgb 12.6 Hct 37.7 MCV 86.4 MCH 28.9 MCHC 33.5 RDW 13.9 Plt Count 213 Neut % (Auto) 60.6 Lymph % (Auto) 20.3 L [place] % (Auto) 11.4 Eos % (Auto) 6.9 H Baso % (Auto) 0.8 Neut # (Auto) 3600 Lymph # (Auto) 1200 [place] # (Auto) 700 Eos # (Auto) 400 Baso # (Auto) 0 PT 12.1 INR 1.1 APTT 31 Sodium 135 L Potassium 4.0 Chloride 101 Carbon Dioxide 26 BUN 22 H Creatinine 0.84 Estimated GFR > 60.0 BUN/Creatinine Ratio 26.2 H Glucose 124 H Calcium 9.3 Magnesium 2.0 Total Bilirubin 0.3 AST 55 H ALT 30 Alkaline Phosphatase 112 Total Creatine Kinase 75 CK-MB (CK-2) TNP CK-MB (CK-2) Rel Index TNP Troponin I < 0.012 NT-Pro-B Natriuret Pep 50 Total Protein 7.0 Albumin 4.1 Globulin 2.9 Albumin/Globulin Ratio 1.4 Lipase 91 SARS-CoV-2 (PCR) 04/27/20 14:23 WBC RBC Hgb Hct MCV MCH MCHC RDW Plt Count Neut % (Auto) Lymph % (Auto) [place] % (Auto) Eos % (Auto) Baso % (Auto) Neut # (Auto) Lymph # (Auto) [place] # (Auto) Eos # (Auto) Baso # (Auto) PT INR APTT Sodium Potassium Chloride Carbon Dioxide BUN Creatinine Estimated GFR BUN/Creatinine Ratio Glucose Calcium Magnesium Total Bilirubin AST ALT Alkaline Phosphatase Total Creatine Kinase CK-MB (CK-2) CK-MB (CK-2) Rel Index Troponin I NT-Pro-B Natriuret Pep Total Protein Albumin Globulin Albumin/Globulin Ratio Lipase SARS-CoV-2 (PCR) Negative Assessment & Plan Assessment & Plan narrative: Pt is a 65yo woman with anxiety, depression and GERD presenting with atypical chest pain, occurring at rest. Pain does have many symptoms consistent with angina, causing concern for cardiac etiology. However, with hx of GERD would also strongly consider GI source. Not entirely consistent with musculoskeletal source. Also consider hypertensive urgency/emergency, although no hx of HTN. 1) Atypical chest pain: Negative work-up so far with negative initial troponin and EKG. Head CT completed in the ED due to speech slurring with one episode of chest pain was negative. Low suspicion for TIA based on full symptoms. - Continue to trend troponin - Plan for stress test in the morning - Aspirin pending results of stress testing 2) GERD: - Continue Omeprazole - Consider increasing to BID dosing pending results of stress test 3) Anxiety/Depression: - Continue home Venlafaxine DVT: SCDs FEN: Cardiac diet Code: Full Dispo: Admitted under observation. Pending completion of serial troponins and stress test tomorrow.
[2020-04-27] MEDS: ASPIRIN EC 81 MG TABLET PO (17:45)
[2020-04-27 21:23] LABS: Troponin I < 0.012 ng/mL (0.01-0.034)
[2020-04-28] MEDS: ACETAMINOPHEN 325 MG TABLET 650 MG PO
[2020-04-28 05:51] VITALS: BP 129/54; PULSE 71; RESP 16; TEMP 36.3; O2SAT 97
[2020-04-28 08:26] VITALS: BP 138/84; PULSE 74; RESP 15; TEMP 36.1; O2SAT 94
--- NOTE | 2020-04-28 10:51 | CM.DANOTE ---
DCP: Case received, EMR reviewed and met with patient. Introduced self and role. Was able to obtain information regarding patient's baseline activity status and living situation prior to hospitalization. DCP assessment completed with information currently available. Patient is a 65 year old male who admitted yesterday afternoon to the care of the hospitalist team. PCP: Dr. Hoyt. Payer: confirmed: [employer]. Patient came to the hospital via family vehicle secondary to having some tightening sensation to her chest, as well as light headiness. Patient is here for diagnostic cardiac testing, as well as labs. She may also be having a stress test today. Patient also has history of anxiety and depression. Met with patient in her room. She is alert and oriented, pleasant. Dr. Hoyt had spoken to TERRI Mckinney last pm and indicated that patient was concerned about being observation versus inpatient, for insurance coverage. Spoke to patient this morning. She stated, I'm not so worried anymore, like I was yesterday. Let her know that her case is being reviewed by UR nurse, and he will determine is she will stay observation, or if she will meet inpatient criteria. Let her know that this can also depend upon what diagnostic procedures indicate. Let her know that insurance would pay on an outpatient basis. Patient is independent at baseline. She resides in [place] with her spoise, Daxa. She stated, she's normaly in pretty good health, so this worried her. P: DCP to continue to follow and will be available if she has further questions. Patient should be able to go home when she is medically stable. Wendy Mccray RN/Serging Machine Operator
--- NOTE | 2020-04-28 11:14 | PC.NURSE ---
Day shift: Pt off unit at approx 1115 for stress test. Pt off tele at this time.
--- NOTE | 2020-04-28 11:45 | PM.TREADMILL ---
Cardiac Stress Test Report Referral & Results Date Patient Seen: 04/28/20 Time Patient Seen: 11:46 Requesting provider: Patricia Hoyt Indication: chest pain Rest ECG: sinus rhythm Procedure Note: Standard Reese protocol, 6:00, 6.1 mets Fair exercise capacity, MARTINEZ 3% Normal hemodynamic response to exercise No chest pain or anginal symptoms No significant ST changes No ectopy Impression: Normal exercise stress test Please note: Actual ECG tracings can be found in the PACS system.
--- NOTE | 2020-04-28 11:47 | PC.NURSE ---
Day shift: Pt back on AC unit at approx 1145. Per GERARD Guevara Pt can eat and drink now. Pt states that she feels well and looking forward to drinking some water. Will continue w/ plan of care. Denies any pain, chest pain or nausea at this time as well.
[2020-04-28] MEDS: VENLAFAXINE ER 75 MG CAP PO (11:51)
[2020-04-28] MEDS: PANTOPRAZOLE 20 MG TABLET PO (11:51)
[2020-04-28 12:39] VITALS: BP 152/90; PULSE 97; RESP 18; TEMP 36.2; O2SAT 97
--- NOTE | 2020-04-28 13:37 | P.DS_ITS ---
History of Present Illness History of Present Illness Chief complaint: Tightening/Pain in Chest, Sweating, Light Headed Narrative: Pt is a 65yo woman with anxiety and depression, and GERD who presented with recurrent chest pain. The pt reports having 3 isolated occurrences of chest pain in the past 2 weeks. The first occurred prior to using the restroom. She reports it felt like a deep substernal pressure with spider legs expanding out across her chest. She had associated severe nausea, sweating, and lightheadedness, and turned very pale. She ended up laying down on the bathroom floor. It resolved after approximately 10 minutes. There were no residual symptoms after resolution. She denies any associated palpitations or SOB. The pain did not radiate to her back, arms, or jaw. The pain recurred on 04/24 when she was sitting at home during the day. Her noted that she looked very pale. She had the exact same symptoms, this time lasting around 15 minutes. Her noted that her speech was slightly slurred at the time as well. The final occurrence was earlier today, again lasting around 10 minutes with the same symptoms, however this time without any speech issues. The pt denies any recent exercise intolerance - no worsening SOB with exercise, chest pain, easy muscle fatigue. She does note that she has gained weight recently due to COVID eating. She does have a hx of GERD, and recently took Omeprazole BID instead of once/day for a few days due to increasing symptoms. The pt notes these symptoms usually occur first thing in the morning or in the evening, however, and the chest pain has only happened in the middle of the day. She denies any other recent abdominal symptoms, change in bowel movements. She does not check her BP at home, but has no hx of HTN or elevated blood pressures. Discharge Providers Provider Date of admission: 04/27/20 14:44 Discharge Date: 04/28/20 Primary care physician: Patricia Hoyt MD Discharge provider: Patricia Hoyt MD Summary Hospital Course Discharge Diagnosis: Atypical chest pain GERD Depression and Anxiety Hospital Course: The pt presented with atypical chest pain. EKG and serial troponins were negative. She underwent stress testing which was also negative. She had no recurrence of the pain while in the hospital. The pain was thought to be related to GERD/indigestion. She was discharged home with a negative cardiac work-up, and instructions to increase her Omeprazole to BID. The pt was noted to intermittently mildly elevated BPs while in the hospital. It was recommended the she start logging her BPs at home intermittently. She will f/u in clinic in 1 month. Status at Discharge Cognitive/behavioral status at discharge: oriented Functional status at discharge: independent ambulation Overall status at discharge: patient is back to baseline Exam Vital Signs (past 8 hours): - 04/28/20 05:51 04/28/20 08:26 04/28/20 12:39 Temperature 97.3 F L 97.0 F L 97.1 F L Pulse Rate 71 74 97 H Respiratory Rate 16 15 18 Blood Pressure 129/54 L 138/84 152/90 H Pulse Oximetry 97 94 97 Oxygen Delivery Method Room Air Oxygen Flow Rate 0 Narrative Exam Narrative: GEN - alert, cooperative and no distress NECK - FROM, no adenopathy, no JVD HEART - RRR, S1, S2 normal, no S3 or S4, no murmurs LUNGS - symmetric chest rise, no accessory muscles, clear to auscultation bilat erally ABD - flat, nondistended, normal bowel sounds, soft, nontender and no hepatomegaly, splenomegaly or masses EXT - no cyanosis, clubbing or edema NEURO - no gross deficits Objective Labs Result Diagrams: 04/27/20 13:15 04/27/20 13:15 Labs: Laboratory Results - last 24 hr 04/27/20 04/27/20 04/27/20 13:15 13:15 14:23 PT 12.1 INR 1.1 APTT 31 Sodium 135 L Potassium 4.0 Chloride 101 Carbon Dioxide 26 BUN 22 H Creatinine 0.84 Estimated GFR > 60.0 BUN/Creatinine Ratio 26.2 H Glucose 124 H Calcium 9.3 Magnesium 2.0 Total Bilirubin 0.3 AST 55 H ALT 30 Alkaline Phosphatase 112 Total Creatine Kinase 75 CK-MB (CK-2) TNP CK-MB (CK-2) Rel Index TNP Troponin I < 0.012 NT-Pro-B Natriuret Pep 50 Total Protein 7.0 Albumin 4.1 Globulin 2.9 Albumin/Globulin Ratio 1.4 Lipase 91 SARS-CoV-2 (PCR) Negative 04/27/20 20:37 PT INR APTT Sodium Potassium Chloride Carbon Dioxide BUN Creatinine Estimated GFR BUN/Creatinine Ratio Glucose Calcium Magnesium Total Bilirubin AST ALT Alkaline Phosphatase Total Creatine Kinase CK-MB (CK-2) CK-MB (CK-2) Rel Index Troponin I < 0.012 NT-Pro-B Natriuret Pep Total Protein Albumin Globulin Albumin/Globulin Ratio Lipase SARS-CoV-2 (PCR) [facility] Medical History Allergic rhinitis (Unknown) Anxiety (2015) Asthma (Unknown) Fractures (1968) Mumps (1965) Mumps (~1964) Osteoarthritis (2005) Restless leg syndrome (Unknown) Skin cancer (03/2017) Surgical History Anesthesia Hx of surgical procedure (03/2017) Family History Brother Age: 63 Hypertension High cholesterol Cancer Brother Age: 61 Hypertension High cholesterol Father Cancer Grandfather Stroke Grandmother Diabetes mellitus TB (tuberculosis) Grandmother Stroke Mother Cancer Social History marital status: number of children: 3 household members: spouse lives independently: Yes caregiver/support person: No housing: house occupational status: employed Smoking Status: Never smoker second hand exposure: No alcohol intake: never substance use type: does not use Discharge Plan Discharge Plan Patient Disposition: Home Provider Discharge Comment: Please check your blood pressures at home intermittently. If > 140 on top or > 90 on the bottom consistently, please let us know. Please increase your Omeprazole to twice/day dosing. If you have the chest pain again, please check your blood pressure at the time. I would also recommend you take Tums if the pain occurs to see if that helps. Discharge orders & Medications Prescriptions: Continued venlafaxine 75 mg capsule,extended release 24hr 75 mg PO DAILY Qty: 90 RF: 0 Changed omeprazole 20 mg capsule,delayed release(DR/EC) 20 mg PO BID Qty: 90 RF: 3 Follow up/Referrals: Patricia Hoyt MD [Primary Care Provider] - 1 Month Diet/Activity/Treatments Diet: Regular Skin/Wound/Dressing Care Report to your healthcare provider any signs of infection, such as:: increased pain Visit Report/Discharge Packet Instructions: Gastroesophageal Reflux Disease (Alternative Therapy), Cardiac Stress Test, DI for Cardiac Stress Test, Gastroesophageal Reflux Disease -- Adolescent, GERD Diet Visit Report Forms: Patient Portal/API, Stroke Signs & Symptoms Discharge Data Primary Care Provider: Patricia Hoyt Attending Provider: Patricia Hoyt Admit Date/Time: 04/27/20 14:44 Discharges patient from system. Discharge Date/Time: 04/28/20 13:50
--- NOTE | 2020-04-28 13:49 | PC.NURSE ---
Day shift: Pt left unit via SATINDER w/ LAZARO Weber. Paperwork signed and all questions answered. Pt has all personal belongings. No new MD scripts.
== END 2020-04-28 13:50 | disposition home or self-care (01) ==
LOC: ED 14:00 → AC 14:45
PROVIDERS: Admitting Provider Family Medicine; Emergency Provider Emergency Medicine; PCP Family Medicine; Referring Provider Emergency Medicine; Visit Provider Family Medicine
DX: R07.9 Chest pain, unspecified (principal); F41.9 Anxiety disorder, unspecified; F32.9 Major depressive disorder, single episode, unspecified; K21.9 Gastro-esophageal reflux disease without esophagitis; Z20.822 Contact with and (suspected) exposure to COVID-19
CPT/HCPCS: 36415; 70450; 71045; 80053; 82550; 83690; 83735; 83880; 84484; 85025; 85610; 85730; 87635; 93005; 93010; 93017; 99217; 99219; 99222; 99238; 99283; 99285; C9803; G0378

== ENCOUNTER → 2021-04-21 14:03 | Outpatient (CLI) | payer MEDICARE, SELFPAY ==
[2020-04-27 16:03] VITALS: BMI 29.7
--- NOTE | 2021-04-21 14:05 | DI.MG.S_ITS ---
BILATERAL DIGITAL SCREENING MAMMOGRAM 3D/2D WITH CAD: 04/21/2021 CLINICAL: Routine screening. Family history of breast cancer. Comparison is made to exams dated: 04/11/2020 mammogram, 07/28/2018 mammogram, and 10/12/2016 mammogram - [facility]. The tissue of both breasts is extremely dense, which lowers the sensitivity of mammography. Current study was also evaluated with a Computer Aided Detection (CAD) system. There are benign calcifications in both breasts. There also are benign post operative findings in the right breast. Additionally, there are benign post operative findings and biopsy clip in the left breast. No significant masses, calcifications, or other findings are seen in either breast. There has been no significant interval change. IMPRESSION: BENIGN There is no mammographic evidence of malignancy. A 1 year screening mammogram is recommended. This exam was interpreted at Station ID: [id number]. NOTE: For mammograms, a report in lay terms will be sent to the patient. Approximately 15% of breast malignancies will not be visualized mammographically. In the management of a palpable breast mass, a negative mammogram must not discourage biopsy of a clinically suspicious lesion. Electronically Signed By: Giuseppe moseley/leonardo:04/21/2021 16:47:21 letter sent: Normal Exam ACR BI-RADS Category 2: Benign Finding(s) 3342F
== END ==
PROVIDERS: PCP Family Medicine; Referring Provider Family Medicine; Visit Provider Family Medicine
DX: Z12.31 Encounter for screening mammogram for malignant neoplasm of breast (principal); Z80.3 Family history of malignant neoplasm of breast
CPT/HCPCS: 77063; 77067

== ENCOUNTER → 2022-02-08 10:35 | Outpatient (CLI) | payer MEDICARE, SELFPAY ==
[2020-04-27 16:03] VITALS: BMI 29.7
[2022-02-08 12:47] LABS: Add Manual Diff / Slide Review NO; Basophils Absolute Auto 0 /uL (0-100); Basophils Percent Auto 0.6 % (0-2); Eosinophils Absolute Auto 100 /uL (0-450); Eosinophils Percent Auto 1.3 % (2-4); Hematocrit 39.4 % (36-46); Hemoglobin 13.6 g/dL (12.0-16.0); Lymphocytes Absolute Auto 800 /uL (1100-4500); Mean Corpuscular HGB Conc 34.6 % (30-36); Mean Corpuscular Hemoglobin 29.8 PG (26-34); Mean Corpuscular Volume 86.2 fL (80-100); Monocytes Absolute Auto 500 /uL (0-900); Monocytes Percent Auto 9.2 % (3-14); Neutrophils Absolute Auto 4400 /uL (1500-7000); Neutrophils Percent Auto 75.9 % (50-75); Platelet Count 183 X10^3/uL (150-400); Red Blood Cell Count 4.57 X10^6/uL (4.0-5.2); Red Cell Distribution Width 13.4 % (11.6-14.8); White Blood Cell Count 5.8 X10^3/uL (4.5-11.0)
[2022-02-08 12:57] LABS: Hemoglobin A1C% w Est Avg Glu 5.3 % (4.0-6.0)
[2022-02-08 13:03] LABS: Alanine Aminotransferase 21 IU/L (<35); Albumin 4.3 g/dL (3.5-5.0); Albumin Globulin Ratio 1.3 (1.0-2.8); Alkaline Phosphatase 80 U/L (38-126); Aspartate Aminotransferase 36 IU/L (14-36); BUN Creatinine Ratio 12.9 (6-22); Blood Urea Nitrogen 11 mg/dL (7-17); Carbon Dioxide 28 mmol/L (22-32); Chloride 93 mmol/L (98-107); Cholesterol 209 mg/dL (140-199); Estimated Glomerular Filt Rate > 60 mL/min (>60); Globulin 3.2 g/dL (1.7-4.1); Glucose 85 mg/dL (80-110); HDL Cholesterol 74 mg/dL (40-60); HEMOLYSIS 16 (0-50); LDL Cholesterol Calculated 124 mg/dL (<100); Sodium 131 mmol/L (137-145); Total Protein 7.5 g/dL (6.3-8.2); Triglycerides 53 mg/dL (35-150)
== END ==
PROVIDERS: PCP Family Medicine; Referring Provider Family Medicine; Visit Provider Family Medicine
DX: E78.5 Hyperlipidemia, unspecified (principal); R73.9 Hyperglycemia, unspecified
CPT/HCPCS: 36415; 80053; 80061; 83036; 85025

== ENCOUNTER → 2022-04-27 08:00 | Outpatient (CLI) | payer MEDICARE, SELFPAY ==
[2022-03-01 11:45] VITALS: BMI 29.7
--- NOTE | 2022-04-27 | DI.MG.S_ITS ---
BILATERAL DIGITAL SCREENING MAMMOGRAM 3D/2D WITH CAD: 04/27/2022 CLINICAL: Routine screening. Family history of breast cancer. Comparison is made to exams dated: 04/21/2021 mammogram, 04/11/2020 mammogram, and 07/28/2018 mammogram - [facility]. Both breasts are extremely dense, which lowers the sensitivity of mammography (category d />75% glandular tissue). Current study was also evaluated with a Computer Aided Detection (CAD) system. There are benign calcifications in both breasts. There also are benign post operative findings in the right breast. Additionally, there are benign post operative findings and biopsy clip in the left breast. No significant masses, calcifications, or other findings are seen in either breast. There has been no significant interval change. IMPRESSION: BENIGN There is no mammographic evidence of malignancy. A 1 year screening mammogram is recommended. Based on Tyrer-Cuzick model (a risk assessment model), the patient's lifetime risk is 24.8% and her 10 year risk is 14.4%. If a patient has an elevated risk, a more comprehensive evaluation should be considered and/or a referral to a genetic counselor. The [employer], [employer], and NCCN Guidelines advise the consideration of Breast MRI as an adjunct to screening mammography in patients whose Lifetime risk to develop breast cancer is 20% or higher. This exam was interpreted at Station ID: [id number]. NOTE: For mammograms, a report in lay terms will be sent to the patient. Approximately 15% of breast malignancies will not be visualized mammographically. In the management of a palpable breast mass, a negative mammogram must not discourage biopsy of a clinically suspicious lesion. Electronically Signed By: Jeanine saenz/leonardo:04/27/2022 11:10:36 letter sent: Normal Exam ACR BI-RADS Category 2: Benign Finding(s) 3342F
== END ==
PROVIDERS: PCP Family Medicine; Referring Provider Family Medicine; Visit Provider Family Medicine
DX: Z12.31 Encounter for screening mammogram for malignant neoplasm of breast (principal); Z80.3 Family history of malignant neoplasm of breast
CPT/HCPCS: 77063; 77067

== ENCOUNTER → 2023-05-12 12:40 | Outpatient (CLI) | payer MEDICARE, SELFPAY ==
[2022-03-01 11:45] VITALS: BMI 29.7
--- NOTE | 2023-05-12 12:41 | DI.MG.S_ITS ---
BILATERAL DIGITAL SCREENING MAMMOGRAM 3D/2D WITH CAD: 05/12/2023 CLINICAL: Routine screening. Family history of breast cancer. Comparison is made to exams dated: 04/27/2022 mammogram, 04/21/2021 mammogram, and 04/11/2020 mammogram - [facility]. Both breasts are extremely dense, which lowers the sensitivity of mammography (category d />75% glandular tissue). Current study was also evaluated with a Computer Aided Detection (CAD) system. There are benign calcifications in both breasts. There also are benign post operative findings in the right breast. Additionally, there are benign post operative findings and biopsy clip in the left breast. No significant masses, calcifications, or other findings are seen in either breast. There has been no significant interval change. IMPRESSION: BENIGN There is no mammographic evidence of malignancy. A 1 year screening mammogram is recommended. Based on Tyrer-Cuzick model (a risk assessment model), the patient's lifetime risk is 23.6% and her 10 year risk is 14.5%. If a patient has an elevated risk, a more comprehensive evaluation should be considered and/or a referral to a genetic counselor. The [place] [employer], [employer], and NCCN Guidelines advise the consideration of Breast MRI as an adjunct to screening mammography in patients whose Lifetime risk to develop breast cancer is 20% or higher. This exam was interpreted at Station ID: [id number]. NOTE: For mammograms, a report in lay terms will be sent to the patient. Approximately 15% of breast malignancies will not be visualized mammographically. In the management of a palpable breast mass, a negative mammogram must not discourage biopsy of a clinically suspicious lesion. Electronically Signed By: Giuseppe moseley/leonardo:05/13/2023 08:30:54 letter sent: Normal Exam ACR BI-RADS Category 2: Benign Finding(s) 3342F
== END ==
PROVIDERS: PCP Family Medicine; Referring Provider Family Medicine; Visit Provider Family Medicine
DX: Z12.31 Encounter for screening mammogram for malignant neoplasm of breast (principal); Z80.3 Family history of malignant neoplasm of breast; R92.343 Mammographic extreme density, bilateral breasts
CPT/HCPCS: 77063; 77067

== ENCOUNTER → 2023-06-13 15:18 | Outpatient (CLI) | payer OTHER, SELFPAY ==
[2022-03-01 11:45] VITALS: BMI 29.7
--- NOTE | 2023-06-13 15:20 | DI.MRI.S_ITS ---
BREAST MRI OF BOTH BREASTS: 06/13/2023 CLINICAL: Follow up. Comparison is made to exams dated: 05/12/2023 mammogram, 04/27/2022 mammogram, 04/21/2021 mammogram, and 04/11/2020 mammogram - [facility]. INDICATIONS: follow up TECHNIQUE: The patient was placed prone in a dedicated breast imaging coil. Precontrast axial STIR and 3D FLASH without fat saturation sequences were obtained. Both before and after bolus injection of contrast, sequential 1-minute axial 3D FLASH with fat saturation sequences for 3 time points, with subtraction images and maximum intensity projections (MIP's) generated. Delayed sagittal FLASH images with fat saturation were also obtained. Computer-aided detection, including computer algorithm analysis of MRI image data for lesion detection and characterization, pharmacokinetic analysis, with further physician review for interpretation, was performed. FINDINGS: Image quality: Excellent. There is mild background parenchymal enhancement. There are extreme fibroglandular elements in both breasts. Right breast: Scattered foci of postcontrast enhancement are most likely related to normal breast tissue. No suspicious mass or abnormal non-mass enhancement. No axillary or internal mammary lymphadenopathy. Left breast: Focal susceptibility artifact is seen related to a biopsy clip at the left upper outer quadrant posterior depth. Scattered foci of postcontrast enhancement are most likely related to normal breast tissue. No suspicious enhancing mass or non-mass enhancement. Intrinsically [id number] cyst is seen in the lateral left breast without postcontrast enhancement. No axillary or internal mammary lymphadenopathy. Miscellaneous: Oval nonenhancing [id number] lesion at the upper abdomen is most likely a hepatic cyst. Otherwise, no significant abnormality is seen in the anterior chest wall or upper abdomen. Incidental note of the left common carotid artery arising from the brachiocephalic trunk, a normal variant. IMPRESSION: BENIGN 1. No MR evidence of malignancy in the right or left breast. 2. No significant lymphadenopathy. 3. Probable left hepatic cyst is incompletely included at the margins of the field of view of this exam. Consider ultrasound for further evaluation. BIRADS 2: Benign. Recommend continued high risk screening schedule with annual screening mammograms and annual breast MRI. COMMENT: The imaging literature indicates that a negative contrast breast MRI examination has a high sensitivity and a moderate specificity for detecting and excluding invasive carcinomas to a detection threshold of 3-5 mm; nonetheless, appropriate clinical and mammographic follow-up are recommended. MRI is not sensitive for detecting DCIS (ductal carcinoma in situ) and may not detect large invasive neoplasms that show only minimal enhancement such as mucinous carcinoma. If there are suspicious calcifications or clinically worrisome palpable masses, then biopsy should still be considered. Invasive neoplasms can be hidden by co-existent and benign enhancement caused by mastitis, hormone therapy effects, radiation therapy, , and recent biopsy or surgery. False positive examinations can occur in a number of circumstances, including breasts that have recently been subject to invasive procedures and those that contain atypical ductal hyperplasia, hormonally stimulated glandular tissue, fat necrosis, or radial scars. A 1 year screening mammogram and a breast MRI is recommended. Future imaging is recommended as follows: 05/12/2024 screening mammogram. This exam was interpreted at Station ID: [id number]. Electronically Signed By: Baldemar Gan M.D. ar/:06/13/2023 20:23:04 letter sent: Normal Exam ACR BI-RADS Category 2: Benign Finding(s) 3342F
== END ==
PROVIDERS: PCP Family Medicine; Referring Provider Family Medicine; Visit Provider Family Medicine
DX: R92.8 Other abnormal and inconclusive findings on diagnostic imaging of breast (principal); R92.323 Mammographic fibroglandular density, bilateral breasts
CPT/HCPCS: 77049; A9579

== ENCOUNTER → 2023-06-28 13:04 | Outpatient (CLI) | payer OTHER, SELFPAY ==
[2022-03-01 11:45] VITALS: BMI 29.7
--- NOTE | 2023-06-28 13:30 | DI.US.S_ITS ---
PROCEDURE: US ABDOMEN LIMITED INDICATIONS: LEFT LIVER CYST ON BREAST MRI TECHNIQUE: Real-time scanning was performed of the abdominal and retroperitoneal organs, with image documentation. COMPARISON: [facility], MR, MR BREAST BI WO/W CON, 06/13/2023, 15:42. FINDINGS: Liver: Liver is normal in size and homogeneous in echotexture. Simple appearing left hepatic cyst measuring 2.5 x 2.9 x 2.2 cm Gallbladder: Cholelithiasis. No wall thickening. No pericholecystic edema. Negative sonographic Ramos's sign. Biliary ducts: Intrahepatic bile ducts are non-dilated. Extrahepatic bile duct caliber measures 4 mm. Normal is 6-7 mm or less in diameter, or 10 mm or less post-cholecystectomy. Pancreas: Not visualized due to overlying bowel gas. Miscellaneous: No free abdominal fluid. IMPRESSION: Simple appearing left hepatic cyst measuring 2.9 cm. Cholelithiasis without wall thickening or adjacent fat stranding to suggest acute cholecystitis. Dictated by: Hamilton Moraes M.D. on 06/28/2023 at 14:46 Approved by: Hamilton Moraes M.D. on 06/28/2023 at 14:47
== END ==
LOC: US 13:05
PROVIDERS: PCP Family Medicine; Referring Provider Family Medicine; Visit Provider Family Medicine
DX: K76.89 Other specified diseases of liver (principal); K80.20 Calculus of gallbladder without cholecystitis without obstruction
CPT/HCPCS: 76705